=== PATIENT | female | born 1965 | race Caucasian/White ===

== ENCOUNTER → 2020-02-14 | Outpatient (CLI) | payer BC ==
[~2020-02-14] MED LIST: DESV50TA PO; GABA300C PO; MELO7.5T31 PO; NAPR220C2 PO; NORT10CA PO
== END | disposition home or self-care (01) ==
LOC: STAR 15:14
PROVIDERS: ATTEND Orthopaedic Surgery
DX: Z20.828 Contact with and (suspected) exposure to other viral communicable diseases (principal); M25.572 Pain in left ankle and joints of left foot; M79.672 Pain in left foot
CPT/HCPCS: 87635

== ENCOUNTER 2020-02-18 11:47 | Day surgery (SDC) | payer BC ==
[~2020-02-18] VITALS: Ht 167.6 cm; Wt 79.4 kg
[2020-02-18 12:20] VITALS: BP 133/91
[2020-02-18] MEDS ORDERED: CHLORHEXIDINE 15 ML UDC ONE (12:24)
[2020-02-18] MEDS ORDERED: CHLORHEXIDINE 15 ML UDC MM ONE (12:30)
[2020-02-18] MEDS ORDERED: LACTATED RINGERS 1,000 ML IV SCH (12:30)
[2020-02-18] MEDS ORDERED: morphine SULFATE 10 MG/ML, 1ML IVPush PRN (13:00)
[2020-02-18] MEDS ORDERED: FENTANYL PF 100 MCG/2ML IV PRN (13:00)
[2020-02-18] MEDS ORDERED: PROMETHAZINE 25 MG/ML, 1ML IVPush PRN (13:00)
[2020-02-18] MEDS ORDERED: MEPERIDINE/PF 25MG/0.5ML IVPush PRN (13:00)
[2020-02-18] MEDS ORDERED: HYDROcodone/APAP 7.5-325MG/15ML UDC PO PRN (13:00)
[2020-02-18] MEDS ORDERED: OXYcodone 5 MG/5 ML ORAL.SOL UDC PO PRN (13:00)
[2020-02-18] MEDS ORDERED: BUPIVACAINE/PF 0.5% ONE (13:17)
[2020-02-18] MEDS ORDERED: LIDOCAINE 1%, 20ML ONE (13:17)
[2020-02-18] MEDS ORDERED: MIDAZOLAM 1 MG/ML, 2ML ONE (13:20)
[2020-02-18] MEDS ORDERED: FENTANYL PF 100 MCG/2ML ONE ×2 (13:20→14:20)
[2020-02-18] MEDS ORDERED: PROPOFOL 10 MG/ML, 20ML ONE (13:54)
[2020-02-18] MEDS ORDERED: ONDANSETRON 2MG/ML, 2ML ONE (13:54)
[2020-02-18] MEDS ORDERED: DEXAMETHASONE 4 MG/ML, 1ML ONE (13:54)
[2020-02-18] MEDS ORDERED: CEFAZOLIN 1,000 MG ONE (13:54)
[2020-02-18] MEDS ORDERED: HYDROmorphone 1 MG/ML, 1ML INJ ONE ×2 (16:06→16:16)
[2020-02-18] MEDS ORDERED: OXYcodone 5 MG/5 ML ORAL.SOL UDC ONE (16:07)
[2020-02-18] MEDS: HYDROmorphone 1 MG/ML, 1ML INJ IVPush PRN ×5 (16:10→17:49)
== END 2020-02-18 19:30 | disposition home or self-care (01) ==
LOC: OUT 11:47
PROVIDERS: ATTEND Orthopaedic Surgery
DX: T84.84XA Pain due to internal orthopedic prosthetic devices, implants and grafts, initial encounter (principal); M72.2 Plantar fascial fibromatosis; M25.872 Other specified joint disorders, left ankle and foot; F32.9 Major depressive disorder, single episode, unspecified; Z79.1 Long term (current) use of non-steroidal anti-inflammatories (NSAID); Z79.899 Other long term (current) drug therapy; Z86.718 Personal history of other venous thrombosis and embolism; Z88.0 Allergy status to penicillin; Z88.5 Allergy status to narcotic agent; Y83.8 Other surgical procedures as the cause of abnormal reaction of the patient, or of later complication, without mention of misadventure at the time of the procedure
CPT/HCPCS: 20900; 28730; 73600; C1713; C1769; J0690; J1100; J1170; J2250; J2405; J2704; J3010; J7120; 76000